=== PATIENT | male | born 1975 | race Caucasian/White ===

== ENCOUNTER 2016-08-12 09:36 | Emergency (ER) | payer OTHER ==
--- NOTE | 2016-08-12 11:57 | DIAGNOSTIC IMAGING REPORT ---
PROCEDURE: XR CHEST 1 VIEW INDICATION: A FIB RVR TECHNIQUE: Portable AP view (1135 hours). COMPARISON: None. FINDINGS: Allowing for overlying wires and electrodes, lungs are clear. Heart and mediastinum are normal. Thorax is normal. IMPRESSION: 1. Negative chest.
--- NOTE | 2016-08-12 12:25 | ED ORDER SUMMARY ---
..... Patient: OPAL PRATHER OrderSheet [facility] VisitID: [id number] [place] [address] 41y, M Registration Date/Time: 08/12/2016 ORDER SHEET Weight: 122.4 kg (stated) Allergies: No Known Drug Allergy GENERAL ORDERS: Dairy Cattle Farm Worker (Continuous) (09:53 08/12/2016 JBoardley R.N. per protocol) (9:54 JBoardley R.N.) Cardiac Panel Stat (09:54 08/12/2016 JBoardley R.N. per protocol) (Ack 10:01 Tyree) (10:09 JBoardley R.N.) PT with INR Urgent (09:54 08/12/2016 JBoardley R.N. per protocol) (Ack 10:02 Tyree) (10:09 JBoardley R.N.) PTT Urgent (09:54 08/12/2016 JBoardley R.N. per protocol) (Ack 10:02 Tyree) (10:09 JBoardley R.N.) Pulse oximeter (09:54 08/12/2016 JBoardley R.N. per protocol) (9:54 JBoardley R.N.) EKG - ER Stat (09:54 08/12/2016 JBoardley R.N. per protocol) (9:54 JBoardley R.N.) D-Dimer Urgent (09:56 08/12/2016 Lorenza MILLARD) (Ack 10:02 Tyree) (10:09 JBoardley R.N.) TSH Urgent (09:57 08/12/2016 Lorenza MILLARD) (Ack 10:02 Tyree) (10:09 JBoardley R.N.) Chest 1V Urgent (11:24 08/12/2016 Lorenza MILLARD) (11:42 LWhalen R.N.) EKG - ER Repeat Stat (11:26 08/12/2016 PWeiler ER Tech1 verbal order read back to Lorenza MILLARD) (11:26 PWeiler ER Tech1) MEDICATION ORDERS: IV FLUIDS: IV Saline Lock (09:54 08/12/2016 JBoarmirna R.N. per protocol) (Ack 9:54 JBoardley R.N.) (9:56 JBoardlekristopher R.N.) IV NS with Normal Saline 1 Liter: initial bolus none -, then 125 mL/hr for X1 (NOW); Emmett (10:27 08/12/2016 LWjames R.N. verbal order read back to Lorenza MILLARD) (10:28 LWjames R.N.) ORDER SHEET NOTES: [Electronically signed by Travon Zuleta MD (13:51 08/12/2016)] [Electronically signed by Carina Lambert R.N. (14:14 08/12/2016)] [Electronically locked/signed by Carina Lambert R.N. (14:14 08/12/2016)]
--- NOTE | 2016-08-12 12:25 | ED NURSING NOTES ---
Clinical Report - Nurses [facility] [address] [place] [address] 08/12/2016 9:38 [id number] Triage time 09:50. Acuity: LEVEL 3. Chief Complaint: PALPITATIONS. 09:50 08/12/16. 09:50 08/12/16. Alert. No acute distress. CARRIE COMA SCORE: Carrie Coma Scale: 15- eyes open spontaneously (4); best verbal response- oriented x 4 (5); best motor response- obeys commands (6). --10:07 Aram Muñoz R.N. 10:15 08/12/16. BP: 136/98. HR: 168 (irregular). RR: 22. O2 saturation: 99% on room air. Temp: 98.2 F (oral). Pain level now: 05/26. --10:07 Aram Muñoz R.N. <<STRICKEN ENTRY-- 10:05 08/12/16. BP: 136/98. HR: 168 (irregular). RR: 22. O2 saturation: 99% on room air. Temp: 98.2 F (oral). Pain level now: 05/26. --10:07 Aram Muñoz R.N. --END STRIKE>> Correction. --14:05 Carina Lambert R.N. Weight: 122.4 kg stated. Height/Length: 68 inches Per Patient. BMI: 41. --09:50 Aram Muñoz R.N. Medications MetFORMIN HCl Oral (Tablet 500 mg) 2 tablets, 2x a day. Omeprazole Oral. Xarelto Oral (Tablet 20 mg) 1 tablet, daily. --09:51 Aram Muñoz R.N. Medication/allergy information source: the patient. --10:07 Aram Muñoz R.N. Allergies No Known Drug Allergy. --09:51 Aram Muñoz R.N. History Arrived by private vehicle, and accompanied by family. Primary physician (TEETEE). 09:50 06/27/17. ( This AM). Treatment SHAREPOINT APPLICATION ARCHITECT: None. PAST MEDICAL HX: Immunizations: up-to-date. SOCIAL HX: Never smoker. No alcohol use or drug use. No infectious disease exposure. ABUSE ASSESSMENT: No report of abuse. FALL RISK ASSESSMENT: Fall risk assessment completed. No fall risk identified. NUTRITIONAL RISK ASSESSMENT: The nutritional risk assessment revealed no deficiencies. FUNCTIONAL ASSESSMENT: Functional assessment: no impairments noted. LEARNING NEEDS ASSESSMENT: The learning needs assessment revealed no barriers. SKIN INTEGRITY ASSESSMENT: Skin integrity risk assessment completed. No skin integrity risk identified. --10:07 Aram Muñoz R.N. PROBLEMS: Abrasion(s). Laceration. Diabetes Mellitus. Atrial Fibrillation. --09:52 Aram Muñoz R.N. Rapid atrial fibrillation. --10:07 Aram Muñoz R.N. ADDITIONAL SURGERIES: Rt ankle. Tympanostomy Tubes. --09:52 Aram Muñoz R.N. Cardiac ablation. Cardiac Procedures. --10:07 Aram Muñoz R.N. Assessment 09:50 08/12/16. --10:07 Aram Muñoz R.N. Interventions 09:50 08/12/16. 09:50 08/12/16. ID and allergy band on patient. To treatment room. --10:07 Aram Muñoz R.N. PHYSICAL ASSESSMENT 09:52 08/12/16. Ambulatory to room. GENERAL / NEURO / PSYCH: Alert. Oriented X 4. Appears in no acute distress. CVS: ( States he feels palpations). SKIN: Skin is warm and dry. --09:52 Aram Muñoz R.N. NURSING PROGRESS NOTES 09:53 08/12/16. The plan of care for this patient has been created. traffic monitor specialist, pulse oximeter and NIBP monitor placed on patient; monitor alarms on. Patient gowned. Head of bed elevated. Two patient identifiers checked. Call light placed in reach. Side rails up x 2. Bed placed in lowest position. Brakes of bed on. --09:53 Aram Muñoz R.N. 09:53 08/12/16. Patient ready for evaluation- chart flagged and notification provided. --09:53 Aram Muñoz R.N. 09:56 08/12/2016 Site #1 started via IV in the right hand with an 20g angiocath, with aseptic technique and good blood return; one attempt. Blood drawn: rainbow set. Labeled in the presence of the patient. Saline lock flushed with 10 mL saline. --09:56 Aram Muñoz R.N. 09:56 08/12/16. EKG time: (0956). EKG was ordered, performed by a nurse and shown to the ED physician. --09:57 rAam Muñoz R.N. 10:07 08/12/16. ( MD at bedside). --10:07 Aram Muñoz R.N. 10:07 08/12/16. O2 saturation: 99%. O2 started via nasal cannula at 2 liters/minute. --10:07 Aram Muñoz R.N. 10:07 08/12/16. --10:07 Aram Muñoz R.N. 10:28 08/12/2016 Started bag #1 1000 mL IV Fluids IV NS (Saline); at 125 mL/hr over 8 hour(s) via site #1 via IV pump. Allergies verified and confirmed 5 rights. IV patency established. IV site checked: no pain, redness, or swelling. IV flushed thoroughly pre- and post-medication administration. --10:28 Carina Lambert R.N. Time-out completed immediately before the procedure per protocol: verified identity of patient (name and birthdate), procedure, position of patient, agreement on the procedure to be done and consent was obtained; verification done by care team (nurse). (1056) --10:59 Carina Lambert R.N. ( 1056 anesthesia at bedside consents given.). --11:00 Carina Lambert R.N. 11:00 08/12/16. BP: 118/90. HR: 168. RR: 16. O2 saturation: 100% on nasal cannula at 2 liters/minute. --11:02 Carina Lambert R.N. ( 1100 RT at bedside. 1104 02 on via nonrebreather mask applied. 1109 propofol push by Anesthesia 124/86 P162 R17 100% O2. 111 120J shock applied. Still in AFIB. 1112 150J shock completed still in AFIB. 132/81 P151 R20. 1112 Propofol 3cc's push. 1113 200J shock given 2cc propofol. 1114 200J shock completed 138/94 nsr at 88.). --11:30 Carina Lambert R.N. ( x-ray of chest completed). --11:36 Carina Lambert R.N. 11:36 08/12/16. BP: 108/88. HR: 90. RR: 21. O2 saturation: 99%. --11:39 Carina Lambert R.N. EKG time: (1120). EKG was ordered, performed by a tech and shown to the ED physician. ( EKG taken post-cardioversion). --12:24 Roger Acevedo, ER Tech1 12:15 08/12/16. BP: 114/79. HR: 89. RR: 19. O2 saturation: 99% on nasal cannula at 2 liters/minute. Temp: 98.6 F. Pain level now: 0/10. 12:00 08/12/16. BP: 120/88. HR: 84. RR: 18. O2 saturation: 98% on nasal cannula at 2 liters/minute. 11:45 08/12/16. BP: 105/70. HR: 85. RR: 20. O2 saturation: 98%. 11:36 08/12/16. BP: 108/88. HR: 90. RR: 21. O2 saturation: 99%. 11:08/12/16. BP: 118/86. HR: 90. RR: 20. O2 saturation: 98% on nasal cannula at 2 liters/minute. 11:15 08/12/16. BP: 134/91. HR: 152. RR: 26. O2 saturation: 100%. 11:00 08/12/16. BP: 118/90. HR: 168. RR: 16. O2 saturation: 100% on nasal cannula at 2 liters/minute. 10:45 08/12/16. BP: 118/90. HR: 157. RR: 21. O2 saturation: 99% on nasal cannula at 2 liters/minute. 10:30 08/12/16. BP: 115/85. HR: 109. RR: 18. O2 saturation: 99%. 10:15 08/12/16. BP: 136/98. HR: 168 (irregular). RR: 22. O2 saturation: 99% on room air. Temp: 98.2 F (oral). Pain level now: 410. --14:12 Carina Lambert R.N. 12:14 08/12/2016 Site #1 removed upon discharge. Catheter intact. Pressure dressing applied. --14:14 Carina Lambert R.N. 12:14 08/12/2016 IV Fluids IV NS Discontinued: bag #1 infused. Total amount infused: 700 mL. IV patency established. IV site checked: no pain, redness, or swelling. IV flushed thoroughly. --14:14 Carina Lambert R.N. DISPOSITION / DISCHARGE Departure time: 12:Aug 12 2016. Condition at departure: improved. No learning barriers present. Discharge instructions provided and reviewed with the patient. Reviewed warnings. Reviewed medication(s). Treatments reviewed. Reviewed referrals. Patient verbalized understanding. Written instructions provided in Romansh. The patient was discharged home. He left the Emergency Department ambulatory and via private vehicle. Patient driving. --14:13 Carina Lambert R.N. 12:15 08/12/16. BP: 114/79. HR: 89. RR: 19. O2 saturation: 99% on nasal cannula at 2 liters/minute. Temp: 98.6 F. Pain level now: 0/10. --14:13 Carina Lambert R.N. Locked/Released at 08/12/2016 14:14 by Carina Lambert R.N.
--- NOTE | 2016-08-12 12:25 | ED NURSING NOTES ---
Clinical Report - Nurses [facility] [address] [place] [address] 08/12/2016 9:38 [id number] Triage time 09:50. Acuity: LEVEL 3. Chief Complaint: PALPITATIONS. 09:50 08/12/16. 09:50 08/12/16. Alert. No acute distress. CARRIE COMA SCORE: Carrie Coma Scale: 15- eyes open spontaneously (4); best verbal response- oriented x 4 (5); best motor response- obeys commands (6). --10:07 Aram Muñoz R.N. 10:15 08/12/16. BP: 136/98. HR: 168 (irregular). RR: 22. O2 saturation: 99% on room air. Temp: 98.2 F (oral). Pain level now: 05/26. --10:07 Aram Muñoz R.N. <<STRICKEN ENTRY-- 10:05 08/12/16. BP: 136/98. HR: 168 (irregular). RR: 22. O2 saturation: 99% on room air. Temp: 98.2 F (oral). Pain level now: 05/26. --10:07 Aram Muñoz R.N. --END STRIKE>> Correction. --14:05 Carina Lambert R.N. Weight: 122.4 kg stated. Height/Length: 68 inches Per Patient. BMI: 41. --09:50 Aram Muñoz R.N. Medications MetFORMIN HCl Oral (Tablet 500 mg) 2 tablets, 2x a day. Omeprazole Oral. Xarelto Oral (Tablet 20 mg) 1 tablet, daily. --09:51 Aram Muñoz R.N. Medication/allergy information source: the patient. --10:07 Aram Muñoz R.N. Allergies No Known Drug Allergy. --09:51 Aram Muñoz R.N. History Arrived by private vehicle, and accompanied by family. Primary physician (TEETEE). 09:50 06/27/17. ( This AM). Treatment FENCE INSTALLER FOREMAN: None. PAST MEDICAL HX: Immunizations: up-to-date. SOCIAL HX: Never smoker. No alcohol use or drug use. No infectious disease exposure. ABUSE ASSESSMENT: No report of abuse. FALL RISK ASSESSMENT: Fall risk assessment completed. No fall risk identified. NUTRITIONAL RISK ASSESSMENT: The nutritional risk assessment revealed no deficiencies. FUNCTIONAL ASSESSMENT: Functional assessment: no impairments noted. LEARNING NEEDS ASSESSMENT: The learning needs assessment revealed no barriers. SKIN INTEGRITY ASSESSMENT: Skin integrity risk assessment completed. No skin integrity risk identified. --10:07 Aram Muñoz R.N. PROBLEMS: Abrasion(s). Laceration. Diabetes Mellitus. Atrial Fibrillation. --09:52 Aram Muñoz R.N. Rapid atrial fibrillation. --10:07 Aram Muñoz R.N. ADDITIONAL SURGERIES: Rt ankle. Tympanostomy Tubes. --09:52 Aram Muñoz R.N. Cardiac ablation. Cardiac Procedures. --10:07 Aram Muñoz R.N. Assessment 09:50 08/12/16. --10:07 Aram Muñoz R.N. Interventions 09:50 08/12/16. 09:50 08/12/16. ID and allergy band on patient. To treatment room. --10:07 Aram Muñoz R.N. PHYSICAL ASSESSMENT 09:52 08/12/16. Ambulatory to room. GENERAL / NEURO / PSYCH: Alert. Oriented X 4. Appears in no acute distress. CVS: ( States he feels palpations). SKIN: Skin is warm and dry. --09:52 Aram Muñoz R.N. NURSING PROGRESS NOTES 09:53 08/12/16. The plan of care for this patient has been created. hospice volunteer coordinator, pulse oximeter and NIBP monitor placed on patient; monitor alarms on. Patient gowned. Head of bed elevated. Two patient identifiers checked. Call light placed in reach. Side rails up x 2. Bed placed in lowest position. Brakes of bed on. --09:53 Aram Muñoz R.N. 09:53 08/12/16. Patient ready for evaluation- chart flagged and notification provided. --09:53 Aram Muñoz R.N. 09:56 08/12/2016 Site #1 started via IV in the right hand with an 20g angiocath, with aseptic technique and good blood return; one attempt. Blood drawn: rainbow set. Labeled in the presence of the patient. Saline lock flushed with 10 mL saline. --09:56 Aram Muñoz R.N. 09:56 08/12/16. EKG time: (0956). EKG was ordered, performed by a nurse and shown to the ED physician. --09:57 Aram Muñoz R.N. 10:07 08/12/16. ( MD at bedside). --10:07 Aram Muñoz R.N. 10:07 08/12/16. O2 saturation: 99%. O2 started via nasal cannula at 2 liters/minute. --10:07 Aram Muñoz R.N. 10:07 08/12/16. --10:07 Aram Muñoz R.N. 10:28 08/12/2016 Started bag #1 1000 mL IV Fluids IV NS (Saline); at 125 mL/hr over 8 hour(s) via site #1 via IV pump. Allergies verified and confirmed 5 rights. IV patency established. IV site checked: no pain, redness, or swelling. IV flushed thoroughly pre- and post-medication administration. --10:28 Carina Lambert R.N. Time-out completed immediately before the procedure per protocol: verified identity of patient (name and birthdate), procedure, position of patient, agreement on the procedure to be done and consent was obtained; verification done by care team (nurse). (1056) --10:59 Carina Lambert R.N. ( 1056 anesthesia at bedside consents given.). --11:00 Carina Lambert R.N. 11:00 08/12/16. BP: 118/90. HR: 168. RR: 16. O2 saturation: 100% on nasal cannula at 2 liters/minute. --11:02 Carina Lambert R.N. ( 1100 RT at bedside. 1104 02 on via nonrebreather mask applied. 1109 propofol push by Anesthesia 124/86 P162 R17 100% O2. 111 120J shock applied. Still in AFIB. 1112 150J shock completed still in AFIB. 132/81 P151 R20. 1112 Propofol 3cc's push. 1113 200J shock given 2cc propofol. 1114 200J shock completed 138/94 nsr at 88.). --11:30 Carina Lambert R.N. ( x-ray of chest completed). --11:36 Carina Lambert R.N. 11:36 08/12/16. BP: 108/88. HR: 90. RR: 21. O2 saturation: 99%. --11:39 Carina Lambert R.N. EKG time: (1120). EKG was ordered, performed by a tech and shown to the ED physician. ( EKG taken post-cardioversion). --12:24 Roger Acevedo, ER Tech1 12:15 08/12/16. BP: 114/79. HR: 89. RR: 19. O2 saturation: 99% on nasal cannula at 2 liters/minute. Temp: 98.6 F. Pain level now: 0/10. 12:00 08/12/16. BP: 120/88. HR: 84. RR: 18. O2 saturation: 98% on nasal cannula at 2 liters/minute. 11:45 08/12/16. BP: 105/70. HR: 85. RR: 20. O2 saturation: 98%. 11:36 08/12/16. BP: 108/88. HR: 90. RR: 21. O2 saturation: 99%. 11:08/12/16. BP: 118/86. HR: 90. RR: 20. O2 saturation: 98% on nasal cannula at 2 liters/minute. 11:15 08/12/16. BP: 134/91. HR: 152. RR: 26. O2 saturation: 100%. 11:00 08/12/16. BP: 118/90. HR: 168. RR: 16. O2 saturation: 100% on nasal cannula at 2 liters/minute. 10:45 08/12/16. BP: 118/90. HR: 157. RR: 21. O2 saturation: 99% on nasal cannula at 2 liters/minute. 10:30 08/12/16. BP: 115/85. HR: 109. RR: 18. O2 saturation: 99%. 10:15 08/12/16. BP: 136/98. HR: 168 (irregular). RR: 22. O2 saturation: 99% on room air. Temp: 98.2 F (oral). Pain level now: 410. --14:12 Carina Lambert R.N. 12:14 08/12/2016 Site #1 removed upon discharge. Catheter intact. Pressure dressing applied. --14:14 Carina Lambert R.N. 12:14 08/12/2016 IV Fluids IV NS Discontinued: bag #1 infused. Total amount infused: 700 mL. IV patency established. IV site checked: no pain, redness, or swelling. IV flushed thoroughly. --14:14 Carina Lambert R.N. DISPOSITION / DISCHARGE Departure time: 12:Aug 12 2016. Condition at departure: improved. No learning barriers present. Discharge instructions provided and reviewed with the patient. Reviewed warnings. Reviewed medication(s). Treatments reviewed. Reviewed referrals. Patient verbalized understanding. Written instructions provided in Japanese. The patient was discharged home. He left the Emergency Department ambulatory and via private vehicle. Patient driving. --14:13 Carina Lambert R.N. 12:15 08/12/16. BP: 114/79. HR: 89. RR: 19. O2 saturation: 99% on nasal cannula at 2 liters/minute. Temp: 98.6 F. Pain level now: 0/10. --14:13 Carina Lambert R.N. Locked/Released at 08/12/2016 14:14 by Carina Lambert R.N.
--- NOTE | 2016-08-12 12:25 | ED ORDER SUMMARY ---
..... Patient: OPAL PRATHER OrderSheet [facility] VisitID: [id number] [place] [address] 41y, M Registration Date/Time: 08/12/2016 ORDER SHEET Weight: 122.4 kg (stated) Allergies: No Known Drug Allergy GENERAL ORDERS: Manager Integrity (Continuous) (09:53 08/12/2016 JBoardley R.N. per protocol) (9:54 JBoardley R.N.) Cardiac Panel Stat (09:54 08/12/2016 JBoardley R.N. per protocol) (Ack 10:01 Tyree) (10:09 JBoardley R.N.) PT with INR Urgent (09:54 08/12/2016 JBoardley R.N. per protocol) (Ack 10:02 Tyree) (10:09 JBoardley R.N.) PTT Urgent (09:54 08/12/2016 JBoardley R.N. per protocol) (Ack 10:02 Tyree) (10:09 JBoardley R.N.) Pulse oximeter (09:54 08/12/2016 JBoardley R.N. per protocol) (9:54 JBoardley R.N.) EKG - ER Stat (09:54 08/12/2016 JBoardley R.N. per protocol) (9:54 JBoardley R.N.) D-Dimer Urgent (09:56 08/12/2016 Lorenza MILLARD) (Ack 10:02 Tyree) (10:09 JBoardley R.N.) TSH Urgent (09:57 08/12/2016 Lorenza MILLARD) (Ack 10:02 Tyree) (10:09 JBoardley R.N.) Chest 1V Urgent (11:24 08/12/2016 Lorenza MILLARD) (11:42 LWhalen R.N.) EKG - ER Repeat Stat (11:26 08/12/2016 PWeiler ER Tech1 verbal order read back to Lorenza MILLARD) (11:26 PWeiler ER Tech1) MEDICATION ORDERS: IV FLUIDS: IV Saline Lock (09:54 08/12/2016 JBoarmirna R.N. per protocol) (Ack 9:54 JBoardley R.N.) (9:56 JBoardlekristopher R.N.) IV NS with Normal Saline 1 Liter: initial bolus none -, then 125 mL/hr for X1 (NOW); Emmett (10:27 08/12/2016 LWjames R.N. verbal order read back to Lorenza MILLARD) (10:28 LWjames R.N.) ORDER SHEET NOTES: [Electronically signed by Travon Zuleta MD (13:51 08/12/2016)] [Electronically signed by Carina Lambert R.N. (14:14 08/12/2016)] [Electronically locked/signed by Carina Lambert R.N. (14:14 08/12/2016)]
--- NOTE | 2016-08-12 12:25 | ED CLINICAL REPORT ---
Clinical Report - Physicians/Mid Levels [facility] [address] [place] [address] 08/12/2016 9:38 Patient: OPAL PRATHER Time Seen: 09:56. Arrived- By private vehicle. Historian- patient. HISTORY OF PRESENT ILLNESS Chief Complaint: PALPITATIONS. It is described as a fast heart beat and an irregular heart beat. This started today and is still present. Onset during sleep. It has been constant. No chest pain or discomfort, fainting episodes or tingling. He has had mild difficulty breathing on exertion. Similar symptoms previously: Many times. Evaluation/treatment- prior cardioversion and ablation. Diagnosis: (atrial fibrillation). REVIEW OF SYSTEMS No chills, fever, sweats, calf pain or chest pain. No cough, difficulty breathing, pedal edema, palpitations or abdominal pain. No constipation, diarrhea, nausea, vomiting or urinary problems. All systems otherwise negative, except as recorded above. PAST HISTORY PCP - [facility] - [facility]. Problems: Hyperlipidemia. Obstructive Sleep Apnea. Rapid atrial fibrillation. Abrasion(s). Laceration. Diabetes Mellitus. Atrial Fibrillation. Additional Surgeries: Cardiac ablation. Cardiac Procedures. Rt ankle. Tympanostomy Tubes. Medications: MetFORMIN HCl Oral (Tablet 500 mg) 2 tablets, 2x a day. Omeprazole Oral. Xarelto Oral (Tablet 20 mg) 1 tablet, daily. Allergies: No Known Drug Allergy. SOCIAL HISTORY Former smoker. No alcohol use or drug use. FAMILY HISTORY Heart disease in first-degree relative (father). His father also has atrial fibrillation. ADDITIONAL NOTES The nursing notes have been reviewed. PHYSICAL EXAM Vital Signs: 08/12/2016 10:05 BP: 136/98. HR: 168. RR: 22. O2 saturation: 99%. Temp: 98.2 F. Pain level now: 4/10. Have been reviewed. Appearance: Alert. No acute distress. He is morbidly obese. Eyes: Pupils equal, round and reactive to light. ENT: Pharynx normal. Neck: Normal inspection. Neck supple. CVS: Tachycardia. Abnormal rhythm, which is irregularly irregular. No cardiac murmur. Respiratory: No respiratory distress. Breath sounds normal. Abdomen: Soft and nontender. Bowel sounds normal. No organomegaly. No mass. Obese. Back: Normal external inspection. No CVA tenderness. Skin: Skin warm and dry. Normal skin color. No rash. Normal skin turgor. Extremities: Extremities exhibit normal ROM. No calf tenderness. No lower extremity edema. LABS, X-RAYS, AND EKG EKG: Rate: 166. Atrial fibrillation. Prior EKG unavailable. The study has been independently viewed by me. EKG #2: Normal EKG. Normal sinus rhythm. Rate: 88. Changes present when compared to prior EKG. (This is a post-cardioversion study). The study has been independently viewed by me. Chest X-ray: No acute disease. The X-rays were independently viewed by me. Laboratory Tests: CBC w Diff: (ALBINO: 08/12/2016 09:56) ( [facility] [place]12[place]:25) Final results Test Result Flag Units (Reference) WHITE BLOOD COUNT 6.8 K/uL (4.5-11.5) RED BLOOD COUNT 5.39 M/uL (4.50-5.90) HEMOGLOBIN 15.8 gm/dL (13.5-17.5) HEMATOCRIT 46.7 % (41.0-53.0) MEAN CELL VOLUME 87 fL (80-100) MEAN CORPUSCULAR HGB 29 pg (26-34) MEAN CORPUSCULAR HGB CONC 34 g/dL (31-37) RED CELL DISTRIBUTION WIDTH 13.9 % (11.6-14.8) PLATELET COUNT 242 K/uL (150-400) NEUTROPHIL % 69.5 % (50-75) LYMPH % 23.0 L % (25-40) MONO % 6.1 % (3-14) EOSINOPHIL % 1.0 % (0-4) BASOPHIL % 0.4 % (0-2) PT with INR: (ALBINO: 08/12/2016 09:56) ( [facility] [place]/12/[place] 10:26) Final results Test Result Flag Units (Reference) INR 1.0 (0.8-1.2) Low Intensity Therapy: INR 1.5-2.0 PT range 18.5-23.1Mod.Intensity Therapy: INR 2.0-3.0 PT range 23.1-31.5High Intensity Therapy: INR 2.5-3.5 PT range 27.4-35.5High Intensity Therapy 2: INR 3.0-4.0 PT range 31.5-39.3 APTT 32 SECONDS (24-34) D-DIMER QUANTITATIVE < 0.27 L ug/mLFEU (0.27-0.52) The primary value of this quantitative assay relates toits negative predictive value (i.e. exclusion) of pulmonaryembolism/deep vein thrombosis/DIC.Elevated levels of d-dimer may also occur with:, age, cancer, inflammation, liver disease,post-op, infection, hematoma, coronary disease, peripheralarteriopathy, bleeding disorders and thrombolytic treatment.Results should be correlated with other clinical andradiological data.Testing Methodology: Latex Immunoassay CHEM 13 PANEL: (ALBINO: 08/12/2016 09:56) ( [facility] 08/12/2016 10:45) Final results Test Result Flag Units (Reference) GLUCOSE 198 H mg/dL (70-110) BUN 10 mg/dL (7-18) CREATININE 0.8 mg/dL (0.6-1.3) Estimated GFR >60 mL/min Estimated GFR- >60 mL/min Note: Persistent reduction over 3 months in eGFR<60 mL/min/1.73 m2 defines CKD. Patients with eGFR values>=60 mL/min/1.73 m2 may also have CKD if evidence ofpersistent proteinuria. Additional information may be foundat [email or web address].org. SODIUM 140 mmol/L (136-145) POTASSIUM 3.9 mmol/L (3.5-5.1) CHLORIDE 103 mmol/L (98-107) CARBON DIOXIDE 25 mmol/L (21-32) CALCIUM 9.1 mg/dL (8.5-10.1) TOTAL PROTEIN 7.3 g/dL (6.4-8.2) ALBUMIN 4.0 g/dL (3.3-5.0) BILIRUBIN, TOTAL 0.9 mg/dL (0.0-1.0) ALKALINE PHOSPHATASE 45 L U/L (46-116) AST (SGOT) 17 U/L (15-37) ALT (SGPT) 52 U/L (12-78) CPK 63 U/L (24-260) MAGNESIUM 1.7 L mg/dL (1.8-2.4) TROPONIN I <0.05 L ng/mL (0.00-1.5) TROPONIN REFERENCE RANGE:<0.1 NEGATIVE0.1-1.5 INDETERMINANT>1.5 POSITIVE THYROID STIMULATING HORMONE 3.400 uIU/mL (0.34-3.74) . PROGRESS AND PROCEDURES Cardioversion: Indication: tachyarrhythmia. Time-out completed immediately before the procedure. The risks of the procedure, benefits and alternatives were explained to patient. IV established. O2 administered. Placed on cafeteria monitor and pulse oximeter. Airway equipment present. Propofol IV drip given. Electrical cardioversion via the anterior posterior approach using pads. First shock 120 J joules. Second shock 150 J joules. Third shock 200 J joules. Fourth shock 200 J joules. Post cardioversion rhythm: normal sinus rhythm. No complications. Procedural Sedation: Time-out completed immediately before the procedure. Preparation: consent was obtained and the risks of the procedure, benefits and alternatives were explained to patient. Patient status during sedation: was attended constantly. Post-procedure: Recovery was uneventful. ( sedation was performed by the nurse appliance mechanic.). Consult obtained from cardiology. Blanca parisi suggests initiating him on metoprolol succinate 100 mg by mouth daily. Case discussed. Phone consult only. Patient/family counseled. Old medical records reviewed. (from [facility]). Disposition: Discharged. Condition: stable. CLINICAL IMPRESSION , paroxysmal atrial fibrillation with uncontrolled rate. The patient is prescribed warfarin or another FDA approved anticoagulant. INSTRUCTIONS Rest. Do not work today. Avoid stimulants (such as cigarettes, coffee, cold medicines, sinus medicines, street drugs). (Follow-up with your machinist 2nd shift. Call for the next available appointment at: Dr. Norma Rios [address] [place], [place] [address] [phone]). Warnings: Further evaluation is necessary. GENERAL WARNINGS: Return or contact your physician immediately if your condition worsens or changes unexpectedly, if not improving as expected, or if other problems arise. Your Current Medications: CONTINUE TAKING THE FOLLOWING MEDICATIONS: MetFORMIN HCl Oral : Tablet 500 mg, 2 tablets 2x a day. Omeprazole Oral. Xarelto Oral : Tablet 20 mg, 1 tablet daily. Prescription Medications: Metoprolol 100 mg: take 1 orally every day. Dispense thirty (30). No refills. (metoprolol succinate) Follow-up: Follow up with your doctor Hemal Thursday in three days as scheduled. Understanding of the discharge instructions verbalized by patient. (Electronically signed by Travon Zuleta MD 08/12/2016 13:51)
--- NOTE | 2016-08-12 12:25 | ED CLINICAL REPORT ---
Clinical Report - Physicians/Mid Levels [facility] [address] [place] [address] 08/12/2016 9:38 Patient: OPAL PRATHER Time Seen: 09:56. Arrived- By private vehicle. Historian- patient. HISTORY OF PRESENT ILLNESS Chief Complaint: PALPITATIONS. It is described as a fast heart beat and an irregular heart beat. This started today and is still present. Onset during sleep. It has been constant. No chest pain or discomfort, fainting episodes or tingling. He has had mild difficulty breathing on exertion. Similar symptoms previously: Many times. Evaluation/treatment- prior cardioversion and ablation. Diagnosis: (atrial fibrillation). REVIEW OF SYSTEMS No chills, fever, sweats, calf pain or chest pain. No cough, difficulty breathing, pedal edema, palpitations or abdominal pain. No constipation, diarrhea, nausea, vomiting or urinary problems. All systems otherwise negative, except as recorded above. PAST HISTORY PCP - [facility] - [facility]. Problems: Hyperlipidemia. Obstructive Sleep Apnea. Rapid atrial fibrillation. Abrasion(s). Laceration. Diabetes Mellitus. Atrial Fibrillation. Additional Surgeries: Cardiac ablation. Cardiac Procedures. Rt ankle. Tympanostomy Tubes. Medications: MetFORMIN HCl Oral (Tablet 500 mg) 2 tablets, 2x a day. Omeprazole Oral. Xarelto Oral (Tablet 20 mg) 1 tablet, daily. Allergies: No Known Drug Allergy. SOCIAL HISTORY Former smoker. No alcohol use or drug use. FAMILY HISTORY Heart disease in first-degree relative (father). His father also has atrial fibrillation. ADDITIONAL NOTES The nursing notes have been reviewed. PHYSICAL EXAM Vital Signs: 08/12/2016 10:05 BP: 136/98. HR: 168. RR: 22. O2 saturation: 99%. Temp: 98.2 F. Pain level now: 4/10. Have been reviewed. Appearance: Alert. No acute distress. He is morbidly obese. Eyes: Pupils equal, round and reactive to light. ENT: Pharynx normal. Neck: Normal inspection. Neck supple. CVS: Tachycardia. Abnormal rhythm, which is irregularly irregular. No cardiac murmur. Respiratory: No respiratory distress. Breath sounds normal. Abdomen: Soft and nontender. Bowel sounds normal. No organomegaly. No mass. Obese. Back: Normal external inspection. No CVA tenderness. Skin: Skin warm and dry. Normal skin color. No rash. Normal skin turgor. Extremities: Extremities exhibit normal ROM. No calf tenderness. No lower extremity edema. LABS, X-RAYS, AND EKG EKG: Rate: 166. Atrial fibrillation. Prior EKG unavailable. The study has been independently viewed by me. EKG #2: Normal EKG. Normal sinus rhythm. Rate: 88. Changes present when compared to prior EKG. (This is a post-cardioversion study). The study has been independently viewed by me. Chest X-ray: No acute disease. The X-rays were independently viewed by me. Laboratory Tests: CBC w Diff: (ALBINO: 08/12/2016 09:56) ( [facility] [place] 08/12/2016 10:25) Final results Test Result Flag Units (Reference) WHITE BLOOD COUNT 6.8 K/uL (4.5-11.5) RED BLOOD COUNT 5.39 M/uL (4.50-5.90) HEMOGLOBIN 15.8 gm/dL (13.5-17.5) HEMATOCRIT 46.7 % (41.0-53.0) MEAN CELL VOLUME 87 fL (80-100) MEAN CORPUSCULAR HGB 29 pg (26-34) MEAN CORPUSCULAR HGB CONC 34 g/dL (31-37) RED CELL DISTRIBUTION WIDTH 13.9 % (11.6-14.8) PLATELET COUNT 242 K/uL (150-400) NEUTROPHIL % 69.5 % (50-75) LYMPH % 23.0 L % (25-40) MONO % 6.1 % (3-14) EOSINOPHIL % 1.0 % (0-4) BASOPHIL % 0.4 % (0-2) PT with INR: (ALBINO: 08/12/2016 09:56) ( [facility] [place] 08/12/2016 10:26) Final results Test Result Flag Units (Reference) INR 1.0 (0.8-1.2) Low Intensity Therapy: INR 1.5-2.0 PT range 18.5-23.1Mod.Intensity Therapy: INR 2.0-3.0 PT range 23.1-31.5High Intensity Therapy: INR 2.5-3.5 PT range 27.4-35.5High Intensity Therapy 2: INR 3.0-4.0 PT range 31.5-39.3 APTT 32 SECONDS (24-34) D-DIMER QUANTITATIVE < 0.27 L ug/mLFEU (0.27-0.52) The primary value of this quantitative assay relates toits negative predictive value (i.e. exclusion) of pulmonaryembolism/deep vein thrombosis/DIC.Elevated levels of d-dimer may also occur with:, age, cancer, inflammation, liver disease,post-op, infection, hematoma, coronary disease, peripheralarteriopathy, bleeding disorders and thrombolytic treatment.Results should be correlated with other clinical andradiological data.Testing Methodology: Latex Immunoassay CHEM 13 PANEL: (ALBINO: 08/12/2016 09:56) ( [facility] 08/12/2016 10:45) Final results Test Result Flag Units (Reference) GLUCOSE 198 H mg/dL (70-110) BUN 10 mg/dL (7-18) CREATININE 0.8 mg/dL (0.6-1.3) Estimated GFR >60 mL/min Estimated GFR- >60 mL/min Note: Persistent reduction over 3 months in eGFR<60 mL/min/1.73 m2 defines CKD. Patients with eGFR values>=60 mL/min/1.73 m2 may also have CKD if evidence ofpersistent proteinuria. Additional information may be foundat [email or web address]. SODIUM 140 mmol/L (136-145) POTASSIUM 3.9 mmol/L (3.5-5.1) CHLORIDE 103 mmol/L (98-107) CARBON DIOXIDE 25 mmol/L (21-32) CALCIUM 9.1 mg/dL (8.5-10.1) TOTAL PROTEIN 7.3 g/dL (6.4-8.2) ALBUMIN 4.0 g/dL (3.3-5.0) BILIRUBIN, TOTAL 0.9 mg/dL (0.0-1.0) ALKALINE PHOSPHATASE 45 L U/L (46-116) AST (SGOT) 17 U/L (15-37) ALT (SGPT) 52 U/L (12-78) CPK 63 U/L (24-260) MAGNESIUM 1.7 L mg/dL (1.8-2.4) TROPONIN I <0.05 L ng/mL (0.00-1.5) TROPONIN REFERENCE RANGE:<0.1 NEGATIVE0.1-1.5 INDETERMINANT>1.5 POSITIVE THYROID STIMULATING HORMONE 3.400 uIU/mL (0.34-3.74) . PROGRESS AND PROCEDURES Cardioversion: Indication: tachyarrhythmia. Time-out completed immediately before the procedure. The risks of the procedure, benefits and alternatives were explained to patient. IV established. O2 administered. Placed on miller rod mill and pulse oximeter. Airway equipment present. Propofol IV drip given. Electrical cardioversion via the anterior posterior approach using pads. First shock 120 J joules. Second shock 150 J joules. Third shock 200 J joules. Fourth shock 200 J joules. Post cardioversion rhythm: normal sinus rhythm. No complications. Procedural Sedation: Time-out completed immediately before the procedure. Preparation: consent was obtained and the risks of the procedure, benefits and alternatives were explained to patient. Patient status during sedation: was attended constantly. Post-procedure: Recovery was uneventful. ( sedation was performed by the nurse technical illustrator.). Consult obtained from cardiology. Blanca parisi suggests initiating him on metoprolol succinate 100 mg by mouth daily. Case discussed. Phone consult only. Patient/family counseled. Old medical records reviewed. (from [facility]). Disposition: Discharged. Condition: stable. CLINICAL IMPRESSION , paroxysmal atrial fibrillation with uncontrolled rate. The patient is prescribed warfarin or another FDA approved anticoagulant. INSTRUCTIONS Rest. Do not work today. Avoid stimulants (such as cigarettes, coffee, cold medicines, sinus medicines, street drugs). (Follow-up with your emergency nurse. Call for the next available appointment at: Dr. Norma Rios [address] [place], [place] [address] [phone]). Warnings: Further evaluation is necessary. GENERAL WARNINGS: Return or contact your physician immediately if your condition worsens or changes unexpectedly, if not improving as expected, or if other problems arise. Your Current Medications: CONTINUE TAKING THE FOLLOWING MEDICATIONS: MetFORMIN HCl Oral : Tablet 500 mg, 2 tablets 2x a day. Omeprazole Oral. Xarelto Oral : Tablet 20 mg, 1 tablet daily. Prescription Medications: Metoprolol 100 mg: take 1 orally every day. Dispense thirty (30). No refills. (metoprolol succinate) Follow-up: Follow up with your doctor Hemal Thursday in three days as scheduled. Understanding of the discharge instructions verbalized by patient. (Electronically signed by Travon Zuleta MD 08/12/2016 13:51)
--- NOTE | 2016-08-12 14:15 | ED DISCHARGE INSTRUCTIONS ---
Patient: OPAL PRATHER General Instructions [facility] VisitID: [id number] [place] [address] 41y, M Registration Date/Time: 08/12/2016 , paroxysmal atrial fibrillation with uncontrolled rate. The patient is prescribed warfarin or another FDA approved anticoagulant. INSTRUCTIONS Rest. Do not work today. Avoid stimulants (such as cigarettes, coffee, cold medicines, sinus medicines, street drugs). (Follow-up with your waste oil pumper. Call for the next available appointment at: Dr. Norma Rios [address] [place], [place] [address] [phone]). Warnings: Further evaluation is necessary. GENERAL WARNINGS: Return or contact your physician immediately if your condition worsens or changes unexpectedly, if not improving as expected, or if other problems arise. Your Current Medications: CONTINUE TAKING THE FOLLOWING MEDICATIONS: MetFORMIN HCl Oral : Tablet 500 mg, 2 tablets 2x a day. Omeprazole Oral. Xarelto Oral : Tablet 20 mg, 1 tablet daily. Prescription Medications: Metoprolol 100 mg: take 1 orally every day. Dispense thirty (30). No refills. (metoprolol succinate) Follow-up: Follow up with your doctor Vassel Thursday in three days as scheduled. Understanding of the discharge instructions verbalized by patient. ADDITIONAL INFORMATION Arrhythmia Electrical impulses cause the normal heart to beat 60 to 100 times a minute. These impulses come from a natural pacemaker deep inside the heart muscle. Each impulse causes the heart muscle to contract. This causes the blood to flow through the heart and out to the tissues and organs of your body. An arrhythmia is a change from the normal speed or pattern of these electrical impulses. This can cause the heart to beat too fast (tachycardia); or too slow (bradycardia); or in an unsteady pattern (irregular rhythm). Symptoms of arrhythmias Different people experience arrhythmias differently. Sometimes they may not have symptoms, but just notice a change in their pulse. Symptoms can include: Fluttering feeling in the chest Shortness of breath Chest pain or pressure Lightheadedness or dizziness Fainting or nearly fainting Palpitations Tiredness, fatigue, or weakness Causes of arrhythmias Arrhythmias are most often due to heart disease such as: Coronary artery disease (arteriosclerosis) Disease of the heart valves Enlarged heart High blood pressure Heart failure Other causes ofarrhythmia include: Certain medicines (such as asthma inhalers and decongestants) Some herbal supplements Cardiac stimulant drugs (such as cocaine, amphetamine, diet pills, certain decongestant cold medicines, caffeine, and nicotine) Excessive alcohol use Medical conditions such as thyroid disease, anemia, anxiety, and panic disorder Arrythmias can often be prevented. The cause and type of arrhythmia determines the best treatment. Sometimes your doctor may want to monitor your heart rate over a 24-hour period or longer. This can help identify the cause of your arrhythmia and find the best treatment. This can be done with a Holter monitor,a portable EKG recording device attached by wires to your chest. You can carry this with you as you perform your routine activities during the monitoring period. Home care Avoid cardiac stimulants (such as cocaine, amphetamine, diet pills, certain decongestant cold medicines, caffeine, and nicotine). If you smoke, stop smoking. Contact your doctor or a local stop-smoking program for help. Tell your doctor about any prescription, [id number] or herbal medicines you take. These may be affecting your heart rhythm. Follow-up care Follow up with your health care provider or as advised by our staff. If a Holter monitor has been recommended, contact the cardiologistyou have been referred toas soon as you canpick up the device. Other outpatient tests may also be arranged for you at that time. Call 911 This is the fastest and safest way to get to the emergency department. The paramedics can also start treatment on the way to the hospital, if needed. Don'twait until your symptoms are severe to call 911. Other reasons to call 911 besides chest pain include: Chest, shoulder, arm, neck, or back pain Shortness of breath Feeling lightheaded, faint, or dizzy Rapid heart beat Slower than usual heart rate compared to your normal Angina withweakness, dizziness, fainting, heavy sweating, nausea, or vomiting Extreme drowsiness, or confusion Weakness of an arm or leg or one side of the face Difficulty with speech or vision When to seek medical care Remember, things are not always like they are on TV. Sometimes it is not so obvious. You may only feel weak or just "not right." If it is not clear or if you have any doubt, call for advice. Seek help for chest pain, or it feels different from usual, even if your symptoms are mild. Do not drive yourself. Have someone else drive. If no one can drive you, call 911. If your doctor has given you medicines to take when you have symptoms, take them, but do not delay getting help while trying to find them. Do not delay. Fast diagnosis and treatment can prevent or limit the amount of heart damage during a heart attack or stroke. Do not go to your doctor's ofice or a clinic because they will not be able to provide all of the testing or treatment required for this condition. Metoprolol Tartrate Oral tablet What is this medicine? METOPROLOL (me TOE proe lole) is a beta-dayanara. Beta-blockers reduce the workload on the heart and help it to beat more regularly. This medicine is used to treat high blood pressure and to prevent chest pain. It is also used to after a heart attack and to prevent an additional heart attack from occurring. How should I use this medicine? Take this medicine by mouth with a drink of water. Follow the directions on the prescription label. Take this medicine immediately after meals. Take your doses at regular intervals. Do not take more medicine than directed. Do not stop taking this medicine suddenly. This could lead to serious heart-related effects. Talk to your blade sharpener regarding the use of this medicine in children. Special care may be needed. What side effects may I notice from receiving this medicine? Side effects that you should report to your doctor or health adult caregiver as soon as possible: allergic reactions like skin rash, itching or hives cold or numb hands or feet depression difficulty breathing faint fever with sore throat irregular heartbeat, chest pain rapid weight gain swollen legs or ankles Side effects that usually do not require medical attention (report to your doctor or health adult caregiver if they continue or are bothersome): anxiety or nervousness change in sex drive or performance dry skin headache nightmares or trouble sleeping short term memory loss stomach upset or diarrhea unusually tired What may interact with this medicine? Do not take this medicine with any of the following medications: sotalol This medicine may also interact with the following medications: clonidine digoxin dobutamine epinephrine isoproterenol medicine to control heart rhythm like quinidine, propafenone medicine for depression like monoamine oxidase (MAO) inhibitors, fluoxetine, and paroxetine medicine for high blood pressure like calcium channel blockers reserpine What if I miss a dose? If you miss a dose, take it as soon as you can. If it is almost time for your next dose, take only that dose. Do not take double or extra doses. Where should I keep my medicine? Keep out of the reach of children. Store at room temperature between 15 and 30 degrees C (59 and 86 degrees F). Throw away any unused medicine after the expiration date. What should I tell my health care provider before I take this medicine? They need to know if you have any of these conditions: diabetes heart or vessel disease like slow heart rate, worsening heart failure, heart block, sick sinus syndrome or Raynaud's disease kidney disease liver disease lung or breathing disease, like asthma or emphysema pheochromocytoma thyroid disease an unusual or allergic reaction to metoprolol, other beta-blockers, medicines, foods, dyes, or preservatives or trying to get breast-feeding What should I watch for while using this medicine? Visit your doctor or health adult caregiver for regular check ups. Contact your doctor right away if your symptoms worsen. Check your blood pressure and pulse rate regularly. Ask your health adult caregiver what your blood pressure and pulse rate should be, and when you should contact them. You may get drowsy or dizzy. Do not drive, use machinery, or do anything that needs mental alertness until you know how this medicine affects you. Do not sit or stand up quickly, especially if you are an older patient. This reduces the risk of dizzy or fainting spells. Contact your doctor if these symptoms continue. Alcohol may interfere with the effect of this medicine. Avoid alcoholic drinks. You have been given the following additional information: Arrhythmia, Unspecified Metoprolol Tartrate Oral tablet Rest. Do not work today. (Electronically signed by Travon Zuleta MD 08/12/2016 13:51)
--- NOTE | 2016-08-12 14:15 | ED DISCHARGE INSTRUCTIONS ---
Patient: OPAL PRATHER General Instructions [facility] VisitID: [id number] [place] [address] 41y, M Registration Date/Time: 08/12/2016 , paroxysmal atrial fibrillation with uncontrolled rate. The patient is prescribed warfarin or another FDA approved anticoagulant. INSTRUCTIONS Rest. Do not work today. Avoid stimulants (such as cigarettes, coffee, cold medicines, sinus medicines, street drugs). (Follow-up with your can dragger. Call for the next available appointment at: Dr. Norma Rios [address] [place], [place] [address] [phone]). Warnings: Further evaluation is necessary. GENERAL WARNINGS: Return or contact your physician immediately if your condition worsens or changes unexpectedly, if not improving as expected, or if other problems arise. Your Current Medications: CONTINUE TAKING THE FOLLOWING MEDICATIONS: MetFORMIN HCl Oral : Tablet 500 mg, 2 tablets 2x a day. Omeprazole Oral. Xarelto Oral : Tablet 20 mg, 1 tablet daily. Prescription Medications: Metoprolol 100 mg: take 1 orally every day. Dispense thirty (30). No refills. (metoprolol succinate) Follow-up: Follow up with your doctor Vassel Thursday in three days as scheduled. Understanding of the discharge instructions verbalized by patient. ADDITIONAL INFORMATION Arrhythmia Electrical impulses cause the normal heart to beat 60 to 100 times a minute. These impulses come from a natural pacemaker deep inside the heart muscle. Each impulse causes the heart muscle to contract. This causes the blood to flow through the heart and out to the tissues and organs of your body. An arrhythmia is a change from the normal speed or pattern of these electrical impulses. This can cause the heart to beat too fast (tachycardia); or too slow (bradycardia); or in an unsteady pattern (irregular rhythm). Symptoms of arrhythmias Different people experience arrhythmias differently. Sometimes they may not have symptoms, but just notice a change in their pulse. Symptoms can include: Fluttering feeling in the chest Shortness of breath Chest pain or pressure Lightheadedness or dizziness Fainting or nearly fainting Palpitations Tiredness, fatigue, or weakness Causes of arrhythmias Arrhythmias are most often due to heart disease such as: Coronary artery disease (arteriosclerosis) Disease of the heart valves Enlarged heart High blood pressure Heart failure Other causes ofarrhythmia include: Certain medicines (such as asthma inhalers and decongestants) Some herbal supplements Cardiac stimulant drugs (such as cocaine, amphetamine, diet pills, certain decongestant cold medicines, caffeine, and nicotine) Excessive alcohol use Medical conditions such as thyroid disease, anemia, anxiety, and panic disorder Arrythmias can often be prevented. The cause and type of arrhythmia determines the best treatment. Sometimes your doctor may want to monitor your heart rate over a 24-hour period or longer. This can help identify the cause of your arrhythmia and find the best treatment. This can be done with a Holter monitor,a portable EKG recording device attached by wires to your chest. You can carry this with you as you perform your routine activities during the monitoring period. Home care Avoid cardiac stimulants (such as cocaine, amphetamine, diet pills, certain decongestant cold medicines, caffeine, and nicotine). If you smoke, stop smoking. Contact your doctor or a local stop-smoking program for help. Tell your doctor about any prescription, [id number]-[id number] or herbal medicines you take. These may be affecting your heart rhythm. Follow-up care Follow up with your health care provider or as advised by our staff. If a Holter monitor has been recommended, contact the cardiologistyou have been referred toas soon as you canpick up the device. Other outpatient tests may also be arranged for you at that time. Call 911 This is the fastest and safest way to get to the emergency department. The paramedics can also start treatment on the way to the hospital, if needed. Don'twait until your symptoms are severe to call 911. Other reasons to call 911 besides chest pain include: Chest, shoulder, arm, neck, or back pain Shortness of breath Feeling lightheaded, faint, or dizzy Rapid heart beat Slower than usual heart rate compared to your normal Angina withweakness, dizziness, fainting, heavy sweating, nausea, or vomiting Extreme drowsiness, or confusion Weakness of an arm or leg or one side of the face Difficulty with speech or vision When to seek medical care Remember, things are not always like they are on TV. Sometimes it is not so obvious. You may only feel weak or just "not right." If it is not clear or if you have any doubt, call for advice. Seek help for chest pain, or it feels different from usual, even if your symptoms are mild. Do not drive yourself. Have someone else drive. If no one can drive you, call 911. If your doctor has given you medicines to take when you have symptoms, take them, but do not delay getting help while trying to find them. Do not delay. Fast diagnosis and treatment can prevent or limit the amount of heart damage during a heart attack or stroke. Do not go to your doctor's ofice or a clinic because they will not be able to provide all of the testing or treatment required for this condition. Metoprolol Tartrate Oral tablet What is this medicine? METOPROLOL (me TOE proe lole) is a beta-dayanara. Beta-blockers reduce the workload on the heart and help it to beat more regularly. This medicine is used to treat high blood pressure and to prevent chest pain. It is also used to after a heart attack and to prevent an additional heart attack from occurring. How should I use this medicine? Take this medicine by mouth with a drink of water. Follow the directions on the prescription label. Take this medicine immediately after meals. Take your doses at regular intervals. Do not take more medicine than directed. Do not stop taking this medicine suddenly. This could lead to serious heart-related effects. Talk to your wash oil pump operator regarding the use of this medicine in children. Special care may be needed. What side effects may I notice from receiving this medicine? Side effects that you should report to your doctor or health care process manager as soon as possible: allergic reactions like skin rash, itching or hives cold or numb hands or feet depression difficulty breathing faint fever with sore throat irregular heartbeat, chest pain rapid weight gain swollen legs or ankles Side effects that usually do not require medical attention (report to your doctor or health care process manager if they continue or are bothersome): anxiety or nervousness change in sex drive or performance dry skin headache nightmares or trouble sleeping short term memory loss stomach upset or diarrhea unusually tired What may interact with this medicine? Do not take this medicine with any of the following medications: sotalol This medicine may also interact with the following medications: clonidine digoxin dobutamine epinephrine isoproterenol medicine to control heart rhythm like quinidine, propafenone medicine for depression like monoamine oxidase (MAO) inhibitors, fluoxetine, and paroxetine medicine for high blood pressure like calcium channel blockers reserpine What if I miss a dose? If you miss a dose, take it as soon as you can. If it is almost time for your next dose, take only that dose. Do not take double or extra doses. Where should I keep my medicine? Keep out of the reach of children. Store at room temperature between 15 and 30 degrees C (59 and 86 degrees F). Throw away any unused medicine after the expiration date. What should I tell my health care provider before I take this medicine? They need to know if you have any of these conditions: diabetes heart or vessel disease like slow heart rate, worsening heart failure, heart block, sick sinus syndrome or Raynaud's disease kidney disease liver disease lung or breathing disease, like asthma or emphysema pheochromocytoma thyroid disease an unusual or allergic reaction to metoprolol, other beta-blockers, medicines, foods, dyes, or preservatives or trying to get breast-feeding What should I watch for while using this medicine? Visit your doctor or health care process manager for regular check ups. Contact your doctor right away if your symptoms worsen. Check your blood pressure and pulse rate regularly. Ask your health care process manager what your blood pressure and pulse rate should be, and when you should contact them. You may get drowsy or dizzy. Do not drive, use machinery, or do anything that needs mental alertness until you know how this medicine affects you. Do not sit or stand up quickly, especially if you are an older patient. This reduces the risk of dizzy or fainting spells. Contact your doctor if these symptoms continue. Alcohol may interfere with the effect of this medicine. Avoid alcoholic drinks. You have been given the following additional information: Arrhythmia, Unspecified Metoprolol Tartrate Oral tablet Rest. Do not work today. (Electronically signed by Travon Zuleta MD 08/12/2016 13:51)
--- NOTE | 2016-08-12 14:15 | ED MAR SUMMARY ---
..... Medication Administration Record [facility] [address] [place] [address] Patient: OPAL PRATHER Visit ID: [id number] 41y, M Weight: 122.4 kg Height/Length: 68 in BMI: 41 ALLERGIES: No Known Drug Allergy Start 10:28 08/12/2016 Carina Lambert RLakiaNLakia, Stop 12:14 08/12/2016 Carina Lambert R.N. Medication Administered: IV NS (SALINE), Dose: IV Fluids over 8 hour(s), Rate: 125 mL/hr, Dispensed: 1000 mL bag, Site: #1 right hand. Medication Ordered: IV NS with Normal Saline 1 Liter: initial bolus none -, then 125 mL/hr for X1 (NOW); Emmett.
--- NOTE | 2016-08-12 14:15 | ED MED RECONCILIATION SUMMARY ---
Patient: OPAL PRATHER Medication Reconciliation Report [facility] VisitID: [id number] [address] [place] [address] 41y, M Registration Date/Time: 08/12/2016 Weight: 122.4 kg Height/Length: 68 in. BMI: 41.0 ALLERGIES: No Known Drug Allergy The patient's Home Medications are listed below: CONTINUE TAKING THE FOLLOWING MEDICATIONS: MetFORMIN HCl Oral (500 mg) 2 tablets, 2x a day Omeprazole Oral Xarelto Oral (20 mg) 1 tablet, daily The source(s) of the original Home Medication information: patient The following Medications were given to the patient in the Emergency Department: IV NS IV Fluids bolus 0, then 125 mL/hr, administered: 08/12/2016 10:28:00 AM The following Medications were prescribed to the patient: Metoprolol 100 mg: take 1 orally every day. Dispense thirty (30). No refills.(metoprolol succinate) -- Travon Zuleta MD
--- NOTE | 2016-08-12 14:15 | ED MAR SUMMARY ---
..... Medication Administration Record [facility] [address] [place] [address] Patient: OPAL PRATHER Visit ID: [id number] 41y, M Weight: 122.4 kg Height/Length: 68 in BMI: 41 ALLERGIES: No Known Drug Allergy Start 10:28 08/12/2016 Carina Lambert RLakiaNLakia, Stop 12:14 08/12/2016 Carina Lambert R.N. Medication Administered: IV NS (SALINE), Dose: IV Fluids over 8 hour(s), Rate: 125 mL/hr, Dispensed: 1000 mL bag, Site: #1 right hand. Medication Ordered: IV NS with Normal Saline 1 Liter: initial bolus none -, then 125 mL/hr for X1 (NOW); Emmett.
--- NOTE | 2016-08-12 14:15 | ED MED RECONCILIATION SUMMARY ---
Patient: OPAL PRATHER Medication Reconciliation Report VisitID: [id number] [address] [place] [address] 41y, M Registration Date/Time: 08/12/2016 Weight: 122.4 kg Height/Length: 68 in. BMI: 41.0 ALLERGIES: No Known Drug Allergy The patient's Home Medications are listed below: CONTINUE TAKING THE FOLLOWING MEDICATIONS: MetFORMIN HCl Oral (500 mg) 2 tablets, 2x a day Omeprazole Oral Xarelto Oral (20 mg) 1 tablet, daily The source(s) of the original Home Medication information: patient The following Medications were given to the patient in the Emergency Department: IV NS IV Fluids bolus 0, then 125 mL/hr, administered: 08/12/2016 10:28:00 AM The following Medications were prescribed to the patient: Metoprolol 100 mg: take 1 orally every day. Dispense thirty (30). No refills.(metoprolol succinate) -- Travon Zuleta MD
== END 2016-08-12 12:30 | disposition home or self-care (01) ==
LOC: ED SRH 09:36
DX: I48.0 Paroxysmal atrial fibrillation (principal); E11.9 Type 2 diabetes mellitus without complications; Z79.01 Long term (current) use of anticoagulants; Z79.84 Long term (current) use of oral hypoglycemic drugs
CPT/HCPCS: 90100; 90616; 91556; 92610; 92720; 93140; 94001; 94060; 95059